=== PATIENT | female | born 1990 ===

== ENCOUNTER 2021-12-10 16:28 | Inpatient (IN) | payer BC ==
[2021-12-10] MEDS ORDERED: Labetalol 100 MG/20 ML MDV IVPUSH ONE (16:31)
[2021-12-10] MEDS ORDERED: Sodium Chloride 0.9% 20 ML SDV IV PRN (16:31)
[2021-12-10] MEDS ORDERED: Sodium Chloride 0.9% 2.5 ML Syringe FLUSH PRN (16:31)
[2021-12-10] MEDS ORDERED: Sodium Chloride 0.9% 10 ML Syringe FLUSH PRN (16:31)
[2021-12-10 18:25] LABS: BLOOD UREA NITROGEN,BUN 18 mg/dL (7.0-18.0); CARBON DIOXIDE,CO2 25.9 mmol/L (21.0-32.0); CHLORIDE,CL 100 mmol/L (98-107); ESTIMATED GFR > 60.0 ml/min; GLUCOSE RANDOM 75 mg/dL (74-106); SODIUM,NA 137 mmol/L (136-145)
[2021-12-10] MEDS ORDERED: Butorphanol 1 MG/ML SDV IVPUSH PRN (18:56)
[2021-12-10] MEDS ORDERED: Misoprostol 200 MCG Tab PO PRN (18:56)
[2021-12-10] MEDS ORDERED: Magnesium Sulfate/Water 4 GM in Premix Bag 1 BAG IV ONE (18:56)
[2021-12-10] MEDS ORDERED: Lidocaine 1% 50 ML MDV INJECT PRN (18:56)
[2021-12-10] MEDS ORDERED: Water For Irrigation,Sterile 1,000 ML Container IRR PRN (18:56)
[2021-12-10] MEDS ORDERED: Misoprostol 25 MCG (1/4 of 100 MCG) Tab VAG PRN (18:56)
[2021-12-10] MEDS ORDERED: Calcium Gluconate 10% 1 GM/10 ML SDV IV PRN (18:56)
[2021-12-10] MEDS ORDERED: Carboprost Tromethamine 250 MCG/1 ML Amp IM PRN (18:56)
[2021-12-10] MEDS ORDERED: Tranexamic Acid 1,000 MG in Sodium Chloride 0.9% 100 ML IV PRN (18:56)
[2021-12-10] MEDS ORDERED: Methylergonovine 0.2 MG/1 ML Amp IM PRN (18:56)
[2021-12-10] MEDS ORDERED: Ampicillin 2 GM in Sodium Chloride 0.9% 100 ML IV ONE (18:56)
[2021-12-10] MEDS ORDERED: Terbutaline 1 MG/ML SDV SUBCUT PRN (18:56)
[2021-12-10] MEDS ORDERED: Oxytocin/0.9 % Sodium Chloride 30 UNIT/500 ML BAG IV SCH (19:00)
[2021-12-10] MEDS ORDERED: Lactated Ringers 1,000 ML IV SCH (19:00)
[2021-12-10] MEDS ORDERED: Magnesium Sulfate/Water 20 GM/500 ML BAG IV SCH (19:00)
[2021-12-10] MEDS ORDERED: Betamethasone Acetate/Betamethasone Sod Phosphate 30 MG/5 ML MDV IM ONE (19:11)
[2021-12-11] MEDS: Ampicillin 1 GM in Sodium Chloride 0.9% 50 ML IV SCH ×4 (00:57→14:05)
[2021-12-11] MEDS: Misoprostol 25 MCG (1/4 of 100 MCG) Tab VAG PRN ×2 (00:59→05:25)
[2021-12-11 07:29] LABS: BLOOD UREA NITROGEN,BUN 13 mg/dL (7.0-18.0); CARBON DIOXIDE,CO2 22.8 mmol/L (21.0-32.0); CHLORIDE,CL 99 mmol/L (98-107); ESTIMATED GFR > 60.0 ml/min; GLUCOSE RANDOM 110 mg/dL (74-106); POTASSIUM,K 4.3 mmol/L (3.5-5.1); SODIUM,NA 132 mmol/L (136-145)
[2021-12-11] MEDS: Magnesium Sulfate/Water 20 GM/500 ML BAG IV PRN (07:57)
[2021-12-11] MEDS ORDERED: Magnesium Sulfate/Water 20 GM/500 ML BAG IV SCH (08:00)
[2021-12-11] MEDS ORDERED: ePHEDrine 50 MG/ML SDV IVPUSH PRN ×2 (08:07)
[2021-12-11] MEDS ORDERED: Ropivacaine 200 MG in Premix Bag 1 BAG EPIDUR SCH (08:15)
[2021-12-11] MEDS ORDERED: Acetaminophen 500 MG Tab PO PRN ×3 (08:45→18:03)
[2021-12-11] MEDS ORDERED: Oxytocin/0.9 % Sodium Chloride 30 UNIT/500 ML BAG IV SCH (08:45)
[2021-12-11] MEDS ORDERED: Promethazine 25 MG/ML SDV IM PRN (10:33)
[2021-12-11] MEDS ORDERED: fentaNYL 100 MCG/2 ML SDV ONE (12:39)
[2021-12-11] MEDS ORDERED: Lidocaine 2% 5 ML SDV ONE (12:39)
[2021-12-11] MEDS ORDERED: Witch Hazel Medicated Pads 40/Jar TOP PRN (18:03)
[2021-12-11] MEDS ORDERED: oxyCODONE 5 MG Tab PO PRN (18:03)
[2021-12-11] MEDS ORDERED: Carboprost Tromethamine 250 MCG/1 ML Amp IM PRN (18:03)
[2021-12-11] MEDS ORDERED: Docusate Sodium 100 MG Cap PO PRN (18:03)
[2021-12-11] MEDS ORDERED: Ibuprofen 800 MG Tab PO PRN (18:03)
[2021-12-11] MEDS ORDERED: Benzocaine/Menthol 20%-0.5% Spray 78 GM Cannister TOP PRN (18:03)
[2021-12-11] MEDS ORDERED: Tranexamic Acid 1,000 MG in Sodium Chloride 0.9% 100 ML IV PRN (18:03)
[2021-12-11] MEDS ORDERED: Ibuprofen 400 MG Tab PO PRN (18:03)
[2021-12-11] MEDS ORDERED: Misoprostol 200 MCG Tab RECTAL PRN (18:03)
[2021-12-11] MEDS ORDERED: Bisacodyl 10 MG Supp RECTAL PRN (18:03)
[2021-12-11] MEDS ORDERED: Methylergonovine 0.2 MG/1 ML Amp IM PRN (18:03)
[2021-12-11] MEDS ORDERED: Lanolin 100% Cream 7 GM Tube TOP PRN (18:03)
[2021-12-12] MEDS: Magnesium Sulfate/Water 20 GM/500 ML BAG IV PRN (05:16)
[2021-12-12 07:29] LABS: BLOOD UREA NITROGEN,BUN 16 mg/dL (7.0-18.0); CARBON DIOXIDE,CO2 25.2 mmol/L (21.0-32.0); CHLORIDE,CL 103 mmol/L (98-107); ESTIMATED GFR > 60.0 ml/min; GLUCOSE RANDOM 91 mg/dL (74-106); POTASSIUM,K 4.6 mmol/L (3.5-5.1); SODIUM,NA 137 mmol/L (136-145)
[2021-12-13 07:09] LABS: BLOOD UREA NITROGEN,BUN 17 mg/dL (7.0-18.0); CHLORIDE,CL 104 mmol/L (98-107); ESTIMATED GFR > 60.0 ml/min; GLUCOSE RANDOM 83 mg/dL (74-106); SODIUM,NA 138 mmol/L (136-145)
[2021-12-13] MEDS: Labetalol 100 MG Tab PO SCH ×2 (16:55→22:14)
[2021-12-14] MEDS: Labetalol 100 MG Tab PO SCH ×2 (08:51→20:32)
== END 2021-12-14 23:59 | disposition home or self-care (01) | DRG 560 ==
LOC: MW.OBCHECK 16:28 → MW.OB 16:28 → MW.OBCHECK 12-11 08:52 → OBSVTOIN 12-11 17:28 → MW.OB 12-12 00:05
PROVIDERS: ADMIT Obstetrics & Gynecology; ATTEND Obstetrics & Gynecology
PROC: 10E0XZZ Delivery of Products of Conception, External Approach (ICD-10-PCS; principal; 2021-12-11)
PROC: 10907ZC Drainage of Amniotic Fluid, Therapeutic from Products of Conception, Via Natural or Artificial Opening (ICD-10-PCS; 2021-12-11)
PROC: 3E0P7VZ Introduction of Hormone into Female Reproductive, Via Natural or Artificial Opening (ICD-10-PCS; 2021-12-11)
PROC: 3E033VJ Introduction of Other Hormone into Peripheral Vein, Percutaneous Approach (ICD-10-PCS; 2021-12-11)
PROC: 3E0R3BZ Introduction of Anesthetic Agent into Spinal Canal, Percutaneous Approach (ICD-10-PCS; 2021-12-11)
PROC: 00HU33Z Insertion of Infusion Device into Spinal Canal, Percutaneous Approach (ICD-10-PCS; 2021-12-11)
PROC: 3E0234Z Introduction of Serum, Toxoid and Vaccine into Muscle, Percutaneous Approach (ICD-10-PCS; 2021-12-14)
DX: O14.14 Severe pre-eclampsia complicating childbirth (principal); Z37.0 Single live birth; O99.12 Other diseases of the blood and blood-forming organs and certain disorders involving the immune mechanism complicating childbirth; D69.6 Thrombocytopenia, unspecified; O36.5930 Maternal care for other known or suspected poor fetal growth, third trimester, not applicable or unspecified; O60.10X0 Preterm labor with preterm delivery, unspecified trimester, not applicable or unspecified; Z20.822 Contact with and (suspected) exposure to COVID-19; Z3A.36 36 weeks gestation of pregnancy; O26.893 Other specified pregnancy related conditions, third trimester; Z67.41 Type O blood, Rh negative
CPT/HCPCS: 01967; 36415; 36430; 51702; 59025; 59409; 76815; 76815-26; 80053; 82570; 82803; 83615; 83735; 84156; 84550; 85027; 85460; 86850; 86900; 86901; A9270-GY; J0290; J0702; J2550; J2590; J2790; J3010; J3475; J7120; U0002